=== PATIENT | female | born 1955 | race African-American/Black ===

== ENCOUNTER 2019-07-16 10:54 | Emergency (ER) | payer BC, OTHER ==
[~2019-07-16] VITALS: Ht 165.1 cm; Wt 79.0 kg
[2019-07-16] MEDS ORDERED: ONDANSETRON HCL 4MG/2ML INJ IV STA (11:40)
[2019-07-16] MEDS ORDERED: MORPHINE SULFATE 4 MG/ML CPJ (NOT FOR IM USE) IV STA (11:40)
[2019-07-16] MEDS ORDERED: NITROGLYCERIN OINT 1GM/INCH UDPKT TD ONE (11:45)
[2019-07-16 11:48] LABS: BASOPHILS % 1.1 % (0.0-2.0); EOSINOPHILS % 0.2 % (0.0-5.0); HEMATOCRIT. 44.4 % (36.0-48.0); HEMOGLOBIN. 15.3 g/dL (12.0-16.0); LYMPHOCYTES % 30.6 % (20.0-50.0); MEAN CORPUSCULAR HEMOGLOBIN 28.5 pg (28.0-32.0); MEAN CORPUSCULAR VOLUME 82.9 fL (81.0-99.0); MEAN PLATELET VOLUME 8.5 fl (7.4-10.4); NEUTROPHILS % 61.1 % (40.0-76.0); PLATELET 321 x1000/uL (130-400); RED BLOOD CELL COUNT 5.36 mill/uL (4.2-5.4); RED CELL DISTRIBUTION WIDTH 14.3 % (11.6-14.6)
[2019-07-16 11:55] LABS: CHLORIDE 103 mEq/L (98-107)
[2019-07-16] MEDS: METOPROLOL TARTRATE 5MG/5ML VIAL IV ONE ×2 (12:19→12:38)
[2019-07-16] MEDS ORDERED: POTASSIUM CHLORIDE 20MEQ TABLET SR PO ONE (12:30)
[2019-07-16 17:00] LABS: *AMPHETAMINES SCREEN URINE NEGATIVE (NEGATIVE); *BARBITURATES SCREEN URINE NEGATIVE (NEGATIVE); *BENZODIAZEPINES SCREEN URINE NEGATIVE (NEGATIVE); *COCAINE SCREEN URINE NEGATIVE (NEGATIVE)
[2019-07-16 17:01] LABS: CANNABINOID URINE SCREEN NEGATIVE (NEGATIVE); METHADONE URINE SCREEN NEGATIVE (NEGATIVE); OPIATES URINE SCREEN NEGATIVE (NEGATIVE); PHENCYCLIDINE URINE SCREEN NEGATIVE (NEGATIVE)
[2019-07-16 17:10] VITALS: BP 145/76
== END 2019-07-16 18:37 | disposition short-term general hospital (02) ==
LOC: ER 10:54 → CANBEDREQ 17:16 → ER 18:37
DX: R07.89 Other chest pain (principal); R00.0 Tachycardia, unspecified; I10 Essential (primary) hypertension; E11.9 Type 2 diabetes mellitus without complications
CPT/HCPCS: 36415; 71045; 80053; 80305; 83880; 84443; 84484; 85025; 93005; 99285; J2270; J2405

== ENCOUNTER 2019-09-15 10:27 | Inpatient (IN) | payer MEDICARE, MEDICAID, OTHER ==
[~2019-09-15] VITALS: Ht 157.5 cm; Wt 76.7 kg
[2019-09-15 11:51] LABS: BASOPHILS % 0.6 % (0.0-2.0); EOSINOPHILS % 0.2 % (0.0-5.0); HEMATOCRIT. 42.6 % (36.0-48.0); HEMOGLOBIN. 14.8 g/dL (12.0-16.0); LYMPHOCYTES % 26.3 % (20.0-50.0); MEAN CORPUSCULAR VOLUME 83.3 fL (81.0-99.0); MEAN PLATELET VOLUME 9.4 fl (7.4-10.4); MONOCYTES % 7.2 % (2.0-8.0); NEUTROPHILS % 65.7 % (40.0-76.0); PLATELET 301 x1000/uL (130-400); RED BLOOD CELL COUNT 5.11 mill/uL (4.2-5.4); RED CELL DISTRIBUTION WIDTH 14.4 % (11.6-14.6)
[2019-09-15 12:05] LABS: CHLORIDE 103 mEq/L (98-107)
[2019-09-15 12:11] LABS: PHOSPHORUS 1.7 mg/dL (2.5-4.9)
[2019-09-15] MEDS ORDERED: POTASSIUM CHLORIDE 20MEQ TABLET SR PO ONE (12:45)
[2019-09-15] MEDS ORDERED: POTASSIUM CHLORIDE INJ 40 MEQ in DEXT 5% WATER 250 ML IV ONE (12:45)
[2019-09-15 14:02] LABS: PROTHROMBIN TIME 10.8 sec (9.6-11.0)
[2019-09-15] MEDS ORDERED: DEXTROSE 50% WATER 50ML SYRINGE IV PRN (14:45)
[2019-09-15] MEDS ORDERED: ONDANSETRON HCL 4MG/2ML INJ IV PRN (14:45)
[2019-09-15 14:54] LABS: CLARITY URINE CLEAR (CLEAR); COLOR URINE YELLOW (YELLOW); KETONES URINE NEGATIVE (NEGATIVE); LEUKOCYTE ESTERASE URINE NEGATIVE (NEGATIVE); NITRITE URINE NEGATIVE (NEGATIVE); OCCULT BLOOD URINE NEGATIVE (NEGATIVE); PROTEIN URINE TRACE (NEGATIVE); SPECIFIC GRAVITY URINE 1.011 (1.005-1.030); UROBILINOGEN URINE 0.2 E.U./dL (0.2-1.0)
[2019-09-15] MEDS ORDERED: POTASSIUM PHOS,M-BASIC-D-BASIC 30 MMOL in SODIUM CHLORIDE 0.9% 500 ML IV NR (15:30)
[2019-09-15] MEDS ORDERED: POTASSIUM CHLORIDE 20MEQ TABLET SR PO NR (16:00)
[2019-09-15] MEDS: INSULIN LISPRO 100 UNITS/ML SUBCUT SCH (18:20)
[2019-09-15] MEDS: BLOOD SUGAR DIAGNOSTIC STRIP TEST SCH (18:41)
[2019-09-15 18:51] LABS: LDL CHOLESTEROL 96 mg/dL (5-100)
[2019-09-15 18:53] LABS: HDL CHOLESTEROL 46 mg/dL (40-59)
[2019-09-15] MEDS ORDERED: TRAZODONE HCL 50MG TABLET PO PRN (21:00)
[2019-09-16] VITALS (7 sets, daily range): BP systolic 101–135; BP diastolic 57–90
[2019-09-16] MEDS: INSULIN LISPRO 100 UNITS/ML SUBCUT SCH ×5 (00:35→20:49)
[2019-09-16] MEDS: BLOOD SUGAR DIAGNOSTIC STRIP TEST SCH ×5 (00:35→20:42)
[2019-09-16 02:19] LABS: CHLORIDE 110 mEq/L (98-107)
[2019-09-16 06:43] LABS: BASOPHILS % 0.9 % (0.0-2.0); EOSINOPHILS % 0.8 % (0.0-5.0); HEMATOCRIT. 39.2 % (36.0-48.0); HEMOGLOBIN. 13.7 g/dL (12.0-16.0); LYMPHOCYTES % 45.7 % (20.0-50.0); MEAN CORPUSCULAR HEMOGLOBIN 29.3 pg (28.0-32.0); MEAN CORPUSCULAR VOLUME 83.8 fL (81.0-99.0); MEAN PLATELET VOLUME 8.5 fl (7.4-10.4); MONOCYTES % 11.4 % (2.0-8.0); NEUTROPHILS % 41.2 % (40.0-76.0); PLATELET 277 x1000/uL (130-400); RED BLOOD CELL COUNT 4.67 mill/uL (4.2-5.4); RED CELL DISTRIBUTION WIDTH 14.6 % (11.6-14.6)
[2019-09-16 06:48] LABS: CHLORIDE 112 mEq/L (98-107)
[2019-09-16 06:54] LABS: PHOSPHORUS 3.3 mg/dL (2.5-4.9)
[2019-09-16] MEDS: POTASSIUM CHLORIDE 20MEQ TABLET SR PO SCH (09:00)
[2019-09-16] MEDS: HEPARIN 5000 UNITS/ML VIAL SUBCUT SCH ×2 (09:00→20:42)
[2019-09-16] MEDS: ACETAMINOPHEN 325MG TABLET PO PRN (16:05)
[2019-09-17] VITALS (12 sets, daily range): BP systolic 104–148; BP diastolic 62–94
[2019-09-17] MEDS: BLOOD SUGAR DIAGNOSTIC STRIP TEST SCH ×4 (06:06→20:41)
[2019-09-17 06:57] LABS: BASOPHILS % 1.2 % (0.0-2.0); EOSINOPHILS % 1.6 % (0.0-5.0); HEMATOCRIT. 39.2 % (36.0-48.0); HEMOGLOBIN. 13.6 g/dL (12.0-16.0); LYMPHOCYTES % 54.2 % (20.0-50.0); MEAN CORPUSCULAR HEMOGLOBIN 29.1 pg (28.0-32.0); MEAN CORPUSCULAR VOLUME 83.6 fL (81.0-99.0); MEAN PLATELET VOLUME 9.2 fl (7.4-10.4); MONOCYTES % 7.3 % (2.0-8.0); NEUTROPHILS % 35.7 % (40.0-76.0); PLATELET 279 x1000/uL (130-400); RED BLOOD CELL COUNT 4.69 mill/uL (4.2-5.4); RED CELL DISTRIBUTION WIDTH 14.4 % (11.6-14.6)
[2019-09-17] MEDS: INSULIN LISPRO 100 UNITS/ML SUBCUT SCH ×4 (07:16→20:47)
[2019-09-17 07:18] LABS: CHLORIDE 110 mEq/L (98-107)
[2019-09-17] MEDS ORDERED: ASPI-1158 PO (07:18)
[2019-09-17] MEDS ORDERED: AMLO5TAB4 MT (07:22)
[2019-09-17] MEDS ORDERED: HYDR12.54 MT (07:25)
[2019-09-17] MEDS ORDERED: METF100092 MT (07:25)
[2019-09-17] MEDS: GUAIFENESIN-DM 200MG-20MG/10ML UDC PO PRN ×3 (08:23→20:48)
[2019-09-17] MEDS: POTASSIUM CHLORIDE 20MEQ TABLET SR PO SCH (08:23)
[2019-09-17] MEDS: HEPARIN 5000 UNITS/ML VIAL SUBCUT SCH ×2 (08:24→21:56)
[2019-09-17] MEDS ORDERED: POTASSIUM CHLORIDE 20MEQ TABLET SR PO SCH (08:45)
[2019-09-17] MEDS ORDERED: HYDR25TA MT (09:24)
[2019-09-17] MEDS ORDERED: AMLO10TA80 MT (09:24)
[2019-09-17] MEDS ORDERED: METF-414 MT (09:24)
[2019-09-17] MEDS ORDERED: AMLODIPINE 2.5MG TABLET PO SCH (09:45)
[2019-09-17] MEDS ORDERED: DOCUSATE SODIUM 100MG CAPSULE PO PRN (09:45)
[2019-09-17] MEDS: ASPIRIN 81MG TABLET PO SCH (10:34)
[2019-09-17] MEDS: HYDROCHLOROTHIAZIDE 12.5MG CAPSULE PO SCH (10:34)
[2019-09-17] MEDS ORDERED: POTASSIUM CHLORIDE 20MEQ TABLET SR PO NR (13:45)
[2019-09-17] MEDS: CITALOPRAM HYDROBROMIDE 10MG TABLET PO SCH (15:57)
[2019-09-17] MEDS: PANTOPRAZOLE 40MG DR TABLET PO SCH (15:58)
[2019-09-17] MEDS: FLUTICASONE PROPIONATE 50MCG/SPRAY BOTTLE BOTHNSTRLS SCH (21:56)
[2019-09-18] VITALS (7 sets, daily range): BP systolic 143–165; BP diastolic 63–89
[2019-09-18] MEDS: BLOOD SUGAR DIAGNOSTIC STRIP TEST SCH ×4 (05:43→21:25)
[2019-09-18] MEDS: PANTOPRAZOLE 40MG DR TABLET PO SCH (05:46)
[2019-09-18] MEDS: INSULIN LISPRO 100 UNITS/ML SUBCUT SCH ×4 (05:57→21:00)
[2019-09-18 06:45] LABS: CHLORIDE 108 mEq/L (98-107)
[2019-09-18 06:54] LABS: BASOPHILS % 1.1 % (0.0-2.0); EOSINOPHILS % 0.4 % (0.0-5.0); HEMATOCRIT. 41.3 % (36.0-48.0); HEMOGLOBIN. 14.3 g/dL (12.0-16.0); LYMPHOCYTES % 41.8 % (20.0-50.0); MEAN CORPUSCULAR HEMOGLOBIN 28.9 pg (28.0-32.0); MEAN CORPUSCULAR VOLUME 83.7 fL (81.0-99.0); MEAN PLATELET VOLUME 9.6 fl (7.4-10.4); MONOCYTES % 6.8 % (2.0-8.0); NEUTROPHILS % 49.9 % (40.0-76.0); PLATELET 293 x1000/uL (130-400); RED BLOOD CELL COUNT 4.94 mill/uL (4.2-5.4); RED CELL DISTRIBUTION WIDTH 14.2 % (11.6-14.6)
[2019-09-18] MEDS ORDERED: POTASSIUM CHLORIDE 20MEQ TABLET SR PO SCH (09:00)
[2019-09-18] MEDS: CITALOPRAM HYDROBROMIDE 10MG TABLET PO SCH (09:29)
[2019-09-18] MEDS: ASPIRIN 81MG TABLET PO SCH (09:29)
[2019-09-18] MEDS: POTASSIUM CHLORIDE 20MEQ TABLET SR PO SCH (09:29)
[2019-09-18] MEDS: HEPARIN 5000 UNITS/ML VIAL SUBCUT SCH ×2 (09:30→20:55)
[2019-09-18] MEDS: HYDROCHLOROTHIAZIDE 12.5MG CAPSULE PO SCH (09:35)
[2019-09-18] MEDS: AMLODIPINE 5MG TABLET PO SCH ×2 (09:35→20:55)
[2019-09-18] MEDS: FLUTICASONE PROPIONATE 50MCG/SPRAY BOTTLE BOTHNSTRLS SCH (09:36)
[2019-09-18] MEDS ORDERED: POTASSIUM CHLORIDE 20MEQ TABLET SR PO NR (11:15)
[2019-09-18] MEDS ORDERED: THROAT LOZENGES-BENZOCAINE/MENTH/CETYLPYRD CL LOZENGES MM PRN (12:15)
[2019-09-18] MEDS: AZITHROMYCIN 500 MG TABLET PO SCH (13:02)
[2019-09-18] MEDS: GUAIFENESIN-DM 200MG-20MG/10ML UDC PO PRN ×3 (13:02→22:37)
[2019-09-19] VITALS (7 sets, daily range): BP systolic 120–157; BP diastolic 59–82
[2019-09-19] MEDS: BLOOD SUGAR DIAGNOSTIC STRIP TEST SCH ×4 (06:04→20:48)
[2019-09-19] MEDS: INSULIN LISPRO 100 UNITS/ML SUBCUT SCH ×4 (07:11→21:00)
[2019-09-19] MEDS: HEPARIN 5000 UNITS/ML VIAL SUBCUT SCH ×2 (08:40→20:48)
[2019-09-19] MEDS: PANTOPRAZOLE 40MG DR TABLET PO SCH (08:40)
[2019-09-19] MEDS: CITALOPRAM HYDROBROMIDE 10MG TABLET PO SCH (08:40)
[2019-09-19] MEDS: HYDROCHLOROTHIAZIDE 12.5MG CAPSULE PO SCH (08:41)
[2019-09-19] MEDS: AMLODIPINE 5MG TABLET PO SCH ×2 (08:41→20:48)
[2019-09-19] MEDS: AZITHROMYCIN 500 MG TABLET PO SCH (08:41)
[2019-09-19] MEDS: POTASSIUM CHLORIDE 20MEQ TABLET SR PO SCH (08:41)
[2019-09-19] MEDS: ASPIRIN 81MG TABLET PO SCH (08:42)
[2019-09-19] MEDS ORDERED: AZIT500T8 PO (10:30)
[2019-09-19] MEDS ORDERED: HYDR-4135 PO (10:30)
[2019-09-19] MEDS ORDERED: CITA10TA16 PO (10:30)
[2019-09-19] MEDS ORDERED: POTA20TA82 MT (10:30)
[2019-09-19] MEDS ORDERED: TUSSL PO (10:30)
[2019-09-19] MEDS ORDERED: TOPUD PO (10:30)
[2019-09-19] MEDS ORDERED: BENZ1LOZ60 MT (10:33)
[2019-09-19] MEDS: GUAIFENESIN-DM 200MG-20MG/10ML UDC PO PRN (11:41)
[2019-09-19] MEDS ORDERED: SENN-170 MT (12:10)
[2019-09-19] MEDS: HYDRALAZINE HCL 50MG TABLET PO SCH ×2 (13:09→22:00)
[2019-09-19] MEDS ORDERED: LORAZEPAM 0.5MG TABLET PO SCH (18:15)
[2019-09-19 18:24] LABS: EOSINOPHILS % 0.1 % (0.0-5.0); HEMATOCRIT. 44.5 % (36.0-48.0); HEMOGLOBIN. 15.2 g/dL (12.0-16.0); MEAN CORPUSCULAR HEMOGLOBIN 28.5 pg (28.0-32.0); MEAN CORPUSCULAR VOLUME 83.6 fL (81.0-99.0); MONOCYTES % 5.7 % (2.0-8.0); NEUTROPHILS % 58.2 % (40.0-76.0); PLATELET 361 x1000/uL (130-400); RED BLOOD CELL COUNT 5.32 mill/uL (4.2-5.4); RED CELL DISTRIBUTION WIDTH 14.1 % (11.6-14.6)
[2019-09-19 18:28] LABS: CHLORIDE 104 mEq/L (98-107)
[2019-09-20] VITALS: BP 129/65
[2019-09-20 04:00] VITALS: BP 142/84
[2019-09-20] MEDS: HYDRALAZINE HCL 50MG TABLET PO SCH (06:00)
[2019-09-20] MEDS: BLOOD SUGAR DIAGNOSTIC STRIP TEST SCH ×4 (06:57→20:52)
[2019-09-20] MEDS: INSULIN LISPRO 100 UNITS/ML SUBCUT SCH ×4 (07:31→20:59)
[2019-09-20 08:00] VITALS: BP 139/76
[2019-09-20 08:07] LABS: BASOPHILS % 0.6 % (0.0-2.0); EOSINOPHILS % 0.3 % (0.0-5.0); HEMATOCRIT. 41.7 % (36.0-48.0); HEMOGLOBIN. 14.3 g/dL (12.0-16.0); LYMPHOCYTES % 49.5 % (20.0-50.0); MEAN CORPUSCULAR HEMOGLOBIN 28.8 pg (28.0-32.0); MEAN CORPUSCULAR VOLUME 83.7 fL (81.0-99.0); MEAN PLATELET VOLUME 8.6 fl (7.4-10.4); MONOCYTES % 7.3 % (2.0-8.0); NEUTROPHILS % 42.3 % (40.0-76.0); PLATELET 340 x1000/uL (130-400); RED BLOOD CELL COUNT 4.98 mill/uL (4.2-5.4); RED CELL DISTRIBUTION WIDTH 14.6 % (11.6-14.6)
[2019-09-20 08:21] LABS: CHLORIDE 103 mEq/L (98-107)
[2019-09-20] MEDS: FAMOTIDINE 20MG TABLET PO SCH ×2 (10:24→20:59)
[2019-09-20] MEDS: ASPIRIN 81MG TABLET PO SCH (10:24)
[2019-09-20] MEDS: AZITHROMYCIN 500 MG TABLET PO SCH (10:24)
[2019-09-20] MEDS: POTASSIUM CHLORIDE 20MEQ TABLET SR PO SCH (10:24)
[2019-09-20] MEDS: CITALOPRAM HYDROBROMIDE 10MG TABLET PO SCH (10:25)
[2019-09-20] MEDS: HEPARIN 5000 UNITS/ML VIAL SUBCUT SCH ×2 (10:25→21:00)
[2019-09-20] MEDS: AMLODIPINE 5MG TABLET PO SCH ×2 (10:25→20:59)
[2019-09-20 12:00] VITALS: BP 125/65
[2019-09-20] MEDS: GUAIFENESIN-DM 200MG-20MG/10ML UDC PO PRN ×3 (12:22→23:26)
[2019-09-20] MEDS ORDERED: LOSA50TA3 PO (12:54)
[2019-09-20 16:00] VITALS: BP 134/64
[2019-09-20] MEDS: LOSARTAN POTASSIUM 50 MG TABLET PO SCH (16:02)
[2019-09-20 20:46] VITALS: BP 134/76
[2019-09-21] VITALS (7 sets, daily range): BP systolic 140–160; BP diastolic 61–93
[2019-09-21] MEDS: BLOOD SUGAR DIAGNOSTIC STRIP TEST SCH ×4 (05:59→20:39)
[2019-09-21] MEDS: INSULIN LISPRO 100 UNITS/ML SUBCUT SCH ×4 (06:00→20:39)
[2019-09-21 07:57] LABS: BASOPHILS % 0.6 % (0.0-2.0); EOSINOPHILS % 0.4 % (0.0-5.0); HEMATOCRIT. 41.5 % (36.0-48.0); HEMOGLOBIN. 14.5 g/dL (12.0-16.0); LYMPHOCYTES % 48.2 % (20.0-50.0); MEAN CORPUSCULAR VOLUME 83.2 fL (81.0-99.0); MEAN PLATELET VOLUME 8.7 fl (7.4-10.4); MONOCYTES % 7.6 % (2.0-8.0); NEUTROPHILS % 43.2 % (40.0-76.0); PLATELET 343 x1000/uL (130-400); RED BLOOD CELL COUNT 4.99 mill/uL (4.2-5.4); RED CELL DISTRIBUTION WIDTH 14.3 % (11.6-14.6)
[2019-09-21 08:11] LABS: CHLORIDE 107 mEq/L (98-107)
[2019-09-21] MEDS: POTASSIUM CHLORIDE 20MEQ TABLET SR PO SCH (09:49)
[2019-09-21] MEDS: FAMOTIDINE 20MG TABLET PO SCH ×2 (09:50→20:58)
[2019-09-21] MEDS: AMLODIPINE 5MG TABLET PO SCH ×2 (09:50→20:58)
[2019-09-21] MEDS: AZITHROMYCIN 500 MG TABLET PO SCH (09:50)
[2019-09-21] MEDS: ASPIRIN 81MG TABLET PO SCH (09:50)
[2019-09-21] MEDS: CITALOPRAM HYDROBROMIDE 10MG TABLET PO SCH (09:50)
[2019-09-21] MEDS: LOSARTAN POTASSIUM 50 MG TABLET PO SCH (09:50)
[2019-09-21] MEDS: HEPARIN 5000 UNITS/ML VIAL SUBCUT SCH ×2 (09:51→20:58)
[2019-09-21] MEDS: ACETAMINOPHEN 325MG TABLET PO PRN (09:53)
[2019-09-22] VITALS: BP 150/79
[2019-09-22 04:00] VITALS: BP 122/70
[2019-09-22] MEDS: BLOOD SUGAR DIAGNOSTIC STRIP TEST SCH ×3 (05:44→17:40)
[2019-09-22 08:00] VITALS: BP 149/83
[2019-09-22] MEDS: INSULIN LISPRO 100 UNITS/ML SUBCUT SCH ×3 (08:10→18:10)
[2019-09-22] MEDS: HEPARIN 5000 UNITS/ML VIAL SUBCUT SCH (09:00)
[2019-09-22] MEDS: AZITHROMYCIN 500 MG TABLET PO SCH (09:23)
[2019-09-22] MEDS: FAMOTIDINE 20MG TABLET PO SCH (09:23)
[2019-09-22] MEDS: AMLODIPINE 5MG TABLET PO SCH (09:23)
[2019-09-22] MEDS: LOSARTAN POTASSIUM 50 MG TABLET PO SCH (09:23)
[2019-09-22] MEDS: ASPIRIN 81MG TABLET PO SCH (09:23)
[2019-09-22] MEDS: CITALOPRAM HYDROBROMIDE 10MG TABLET PO SCH (09:23)
[2019-09-22] MEDS: POTASSIUM CHLORIDE 20MEQ TABLET SR PO SCH (09:24)
[2019-09-22 12:00] VITALS: BP 132/77
[2019-09-22] MEDS: GUAIFENESIN-DM 200MG-20MG/10ML UDC PO PRN (13:27)
[2019-09-22 14:46] LABS: BASOPHILS % 0.8 % (0.0-2.0); EOSINOPHILS % 0.6 % (0.0-5.0); HEMATOCRIT. 40.9 % (36.0-48.0); HEMOGLOBIN. 14.2 g/dL (12.0-16.0); LYMPHOCYTES % 38.4 % (20.0-50.0); MEAN CORPUSCULAR VOLUME 83.9 fL (81.0-99.0); MEAN PLATELET VOLUME 8.5 fl (7.4-10.4); MONOCYTES % 6.5 % (2.0-8.0); NEUTROPHILS % 53.7 % (40.0-76.0); PLATELET 312 x1000/uL (130-400); RED BLOOD CELL COUNT 4.88 mill/uL (4.2-5.4); RED CELL DISTRIBUTION WIDTH 14.7 % (11.6-14.6)
[2019-09-22 14:56] LABS: CHLORIDE 108 mEq/L (98-107)
[2019-09-22 16:00] VITALS: BP 108/83
== END 2019-09-22 19:45 | disposition home health service (06) | DRG 871 ==
LOC: ER 10:44 → EDBEDREQ 12:51 → MICUSO 14:20 → EDBEDREQTM 14:29 → EDBEDREQ 14:29 → 3WST 09-16 12:58 → 7WST 09-18 00:24
PROVIDERS: ADMIT Internal Medicine; ATTEND Internal Medicine
DX: A41.89 Other specified sepsis (principal); U07.1 COVID-19; J18.9 Pneumonia, unspecified organism; J96.00 Acute respiratory failure, unspecified whether with hypoxia or hypercapnia; J12.89 Other viral pneumonia; E87.6 Hypokalemia; E83.39 Other disorders of phosphorus metabolism; I10 Essential (primary) hypertension; E11.9 Type 2 diabetes mellitus without complications; J20.9 Acute bronchitis, unspecified; J20.8 Acute bronchitis due to other specified organisms; F41.9 Anxiety disorder, unspecified; E66.9 Obesity, unspecified; Z86.73 Personal history of transient ischemic attack (TIA), and cerebral infarction without residual deficits; Z78.9 Other specified health status; Z68.30 Body mass index [BMI] 30.0-30.9, adult
CPT/HCPCS: 36415; 71045; 80048; 80053; 80061; 81003; 82962; 83036; 83735; 83880; 84100; 84436; 84443; 84480; 84484; 85025; 93005; 93306; 96365; 97162; 97166; 99291; J1644; J1815; J3480; J3490; J7040; J7060; U0003-CS

== ENCOUNTER 2020-04-19 10:14 | Emergency (ER) | payer MEDICARE, OTHER ==
[~2020-04-19] VITALS: Ht 160 cm; Wt 73.0 kg
[~2020-04-19 10:14] MED LIST: AMLO10TA80 MT; ASPI-1406 PO; AZIT500T8 PO; BENZ1LOZ60 MT; CITA10TA16 PO; LOSA50TA3 PO; METF-414 MT; POTA20TA82 MT; SENN-257 MT; TOPUD PO; TUSSL PO
[2020-04-19] MEDS ORDERED: HYDROCODONE/ACETAMINOPHEN 5/325MG TABLET PO STA (10:39)
[2020-04-19 11:16] LABS: CHLORIDE 107 mEq/L (98-107)
[2020-04-19 11:17] LABS: BASOPHILS % 0.7 % (0.0-2.0); EOSINOPHILS % 0.6 % (0.0-5.0); HEMATOCRIT. 41.5 % (36.0-48.0); LYMPHOCYTES % 39.6 % (20.0-50.0); MEAN CORPUSCULAR HEMOGLOBIN 28.3 pg (28.0-32.0); MEAN CORPUSCULAR VOLUME 83.9 fL (81.0-99.0); MEAN PLATELET VOLUME 9.4 fl (7.4-10.4); MONOCYTES % 6.6 % (2.0-8.0); NEUTROPHILS % 52.5 % (40.0-76.0); PLATELET 259 x1000/uL (130-400); RED BLOOD CELL COUNT 4.95 mill/uL (4.2-5.4); RED CELL DISTRIBUTION WIDTH 14.3 % (11.6-14.6)
[2020-04-19 11:21] LABS: CLARITY URINE CLEAR (CLEAR); COLOR URINE YELLOW (YELLOW); KETONES URINE NEGATIVE (NEGATIVE); LEUKOCYTE ESTERASE URINE NEGATIVE (NEGATIVE); NITRITE URINE NEGATIVE (NEGATIVE); OCCULT BLOOD URINE NEGATIVE (NEGATIVE); PH URINE 7.5 (4.5-8.0); PROTEIN URINE 1+ (NEGATIVE); SPECIFIC GRAVITY URINE 1.012 (1.005-1.030); UROBILINOGEN URINE 0.2 E.U./dL (0.2-1.0)
[2020-04-19] MEDS ORDERED: MELO-105 MT (12:00)
[2020-04-19] MEDS ORDERED: KETOROLAC 60MG/2ML VIAL IM ONE (12:00)
[2020-04-19] MEDS ORDERED: [UNRECOGNIZED DRUG - CODE] MT (12:01)
[2020-04-19] MEDS ORDERED: SENN-257 MT (12:01)
[2020-04-19 12:25] VITALS: BP 152/63
== END 2020-04-19 12:26 | disposition home or self-care (01) ==
LOC: ER 10:14
DX: R10.32 Left lower quadrant pain (principal); E11.9 Type 2 diabetes mellitus without complications; I10 Essential (primary) hypertension; Z86.73 Personal history of transient ischemic attack (TIA), and cerebral infarction without residual deficits; Z79.84 Long term (current) use of oral hypoglycemic drugs; Z79.82 Long term (current) use of aspirin
CPT/HCPCS: 36415; 74176; 80053; 81003; 83690; 85025; 93005; 96372; 99285; J1885

== ENCOUNTER 2024-01-16 07:28 | Inpatient (IN) | payer MEDICARE, MEDICAID ==
[~2024-01-16] VITALS: Ht 165.1 cm; Wt 71.9 kg
[~2024-01-16 07:28] MED LIST changes: -BENZ1LOZ60 MT; +BENZ1LOZ73 MT; +LOSA-413 PO; -LOSA50TA3 PO; +MELO-105 MT; +POTA-205 MT; -POTA20TA82 MT; -SENN-257 MT; +SENN-362 MT; +[UNRECOGNIZED DRUG - CODE] MT
[2024-01-16 07:29] VITALS: O2SAT 100
[2024-01-16] MEDS ORDERED: ACETAMINOPHEN WITH CODEINE 300/30MG TABLET PO ONE (07:45)
[2024-01-16] MEDS: KETOROLAC 30MG/ML VIAL IM ONE (07:58)
[2024-01-16] MEDS: ACETAMINOPHEN WITH CODEINE 300/30MG TABLET PO NR (08:27)
[2024-01-16] MEDS ORDERED: MORPHINE SULFATE 4 MG/ML INJ (FOR IV/IM USE) IV ONE (09:00)
[2024-01-16] MEDS: MORPHINE SULFATE 4 MG/ML INJ (FOR IV/IM USE) IV NR (11:09)
[2024-01-16 11:10] LABS: BASOPHILS % 0.4 % (0.0-2.0); EOSINOPHILS % 1.4 % (0.0-5.0); HEMATOCRIT. 39.2 % (36.0-48.0); HEMOGLOBIN. 13.4 g/dL (12.0-16.0); LYMPHOCYTES % 42.6 % (20.0-50.0); MEAN CORPUSCULAR HEMOGLOBIN 29.9 pg (28.0-32.0); MEAN CORPUSCULAR HGB CONC 34.2 g/dL (31.0-37.0); MEAN CORPUSCULAR VOLUME 87.4 fL (81.0-99.0); MEAN PLATELET VOLUME 8.9 fl (7.4-10.4); MONOCYTES % 9.1 % (2.0-8.0); NEUTROPHILS % 46.5 % (40.0-76.0); PLATELET 277 x1000/uL (130-400); RED BLOOD CELL COUNT 4.48 mill/uL (4.2-5.4); WHITE BLOOD COUNT 6.4 x1000/uL (4.5-11.0)
[2024-01-16 11:22] LABS: CHLORIDE 108 mEq/L (98-107); POTASSIUM 3.3 mEq/L (3.5-5.1); SODIUM 139 mEq/L (136-145)
[2024-01-16 11:23] LABS: CALCIUM 9.6 mg/dL (8.7-10.4); CARBON DIOXIDE 26 mEq/L (21-32)
[2024-01-16 11:28] LABS: CREATININE 0.8 mg/dL (0.6-1.0); GLUCOSE 150 mg/dL (70-105); UREA NITROGEN BLOOD 17 mg/dL (9-23)
[2024-01-16] MEDS ORDERED: ONDANSETRON HCL 4MG/2ML INJ IV PRN (18:15)
[2024-01-16] MEDS ORDERED: DOCUSATE SODIUM 100MG CAPSULE PO PRN (18:15)
[2024-01-16] MEDS ORDERED: CLONIDINE 0.1MG TABLET PO PRN (18:15)
[2024-01-16] MEDS ORDERED: DEXTROSE 50% WATER 50ML SYRINGE IV PRN (18:15)
[2024-01-16] MEDS ORDERED: ACETAMINOPHEN 325MG TABLET PO PRN (18:15)
[2024-01-16] MEDS ORDERED: IPRATROPIUM/ALBUTEROL 0.5-3(2.5)MG/3ML NEB HHN PRN (19:00)
[2024-01-16 20:00] VITALS: BP 148/79; PULSE 68; RESP 18; TEMP 36.72516; O2SAT 95
[2024-01-16] MEDS: INSULIN LISPRO 100 UNITS/ML SUBCUT SCH (21:00)
[2024-01-16] MEDS: BLOOD SUGAR DIAGNOSTIC STRIP TEST SCH (21:34)
[2024-01-16] MEDS: HYDRALAZINE HCL 25MG TABLET PO SCH (22:00)
[2024-01-16] MEDS: GABAPENTIN 100MG CAPSULE PO SCH (22:05)
[2024-01-16] MEDS: ACETAMINOPHEN 325MG TABLET PO PRN (22:36)
[2024-01-16] MEDS ORDERED: NALOXONE HCL 0.4MG/ML VIAL IV PRN (22:45)
[2024-01-16 23:23] LABS: CREATINE KINASE 137 IU/L (34-145)
[2024-01-17] VITALS: BP 147/80; PULSE 70; RESP 18; TEMP 37.2252; O2SAT 95
[2024-01-17 04:00] VITALS: BP 146/67; PULSE 74; RESP 18; RESP 20; TEMP 36.83628; TEMP 36.89184; O2SAT 100; O2SAT 96
[2024-01-17 07:14] LABS: CHLORIDE 106 mEq/L (98-107); POTASSIUM 3.4 mEq/L (3.5-5.1); SODIUM 141 mEq/L (136-145)
[2024-01-17 07:15] LABS: CALCIUM 9.8 mg/dL (8.7-10.4); CARBON DIOXIDE 26 mEq/L (21-32)
[2024-01-17 07:20] LABS: CREATININE 0.8 mg/dL (0.6-1.0); GLUCOSE 130 mg/dL (70-105); TRIGLYCERIDE 126 mg/dL (0-150); UREA NITROGEN BLOOD 11 mg/dL (9-23)
[2024-01-17 07:21] LABS: ALANINE AMINOTRANSFERASE 73 IU/L (10-49); LDL CHOLESTEROL 155 mg/dL (5-100)
[2024-01-17 07:22] LABS: ALBUMIN 4.5 g/dL (3.2-4.8); ASPARTATE AMINOTRANSFERASE 73 IU/L (<34); BILIRUBIN DIRECT 0.1 mg/dL (<=3.0); CHOLESTEROL 225 mg/dL (<200); HDL CHOLESTEROL 52 mg/dL (>65); PHOSPHORUS 2.7 mg/dL (2.5-4.9)
[2024-01-17 07:23] LABS: BILIRUBIN TOTAL 0.7 mg/dL (0.1-1.0); INR 0.9; PROTHROMBIN TIME 10.3 sec (9.6-11.0)
[2024-01-17 07:40] LABS: BASOPHILS % 0.7 % (0.0-2.0); EOSINOPHILS % 2.9 % (0.0-5.0); HEMATOCRIT. 45.8 % (36.0-48.0); MEAN CORPUSCULAR HGB CONC 32.7 g/dL (31.0-37.0); MEAN CORPUSCULAR VOLUME 88.6 fL (81.0-99.0); MEAN PLATELET VOLUME 9.4 fl (7.4-10.4); MONOCYTES % 8.3 % (2.0-8.0); NEUTROPHILS % 34.1 % (40.0-76.0); PLATELET 245 x1000/uL (130-400); RED BLOOD CELL COUNT 5.17 mill/uL (4.2-5.4); RED CELL DISTRIBUTION WIDTH 14.3 % (11.6-14.6)
[2024-01-17 08:00] VITALS: BP 126/60; PULSE 102; RESP 20; TEMP 36.114; O2SAT 97
[2024-01-17] MEDS: TRAMADOL 50MG TABLET PO PRN (09:23)
[2024-01-17] MEDS: PANTOPRAZOLE SODIUM 40 MG/VIAL IV SCH (09:33)
[2024-01-17] MEDS: ENOXAPARIN 40MG/0.4ML SYR SUBCUT SCH (09:41)
[2024-01-17 12:00] VITALS: BP 135/70; PULSE 72; RESP 20; TEMP 36.22512; O2SAT 98
[2024-01-17] MEDS: POTASSIUM CHLORIDE 20MEQ TABLET SR PO NR (13:45)
[2024-01-17 16:00] VITALS: BP 137/50; PULSE 74; RESP 20; TEMP 36.22512; O2SAT 98
[2024-01-17 20:00] VITALS: BP 126/69; PULSE 78; RESP 20; TEMP 36.61404; O2SAT 98
[2024-01-17] MEDS: ATORVASTATIN CALCIUM 40MG TABLET PO SCH (21:59)
[2024-01-18] VITALS: BP 136/57; PULSE 75; RESP 18; TEMP 36.78072; O2SAT 100
[2024-01-18 04:00] VITALS: BP 115/55; PULSE 79; RESP 20; TEMP 36.72516; O2SAT 96
[2024-01-18 07:56] VITALS: BP 142/57; PULSE 72; RESP 20; TEMP 36.72516; O2SAT 100
[2024-01-18 08:34] LABS: BASOPHILS % 0.7 % (0.0-2.0); EOSINOPHILS % 3.6 % (0.0-5.0); HEMATOCRIT. 39.2 % (36.0-48.0); LYMPHOCYTES % 46.5 % (20.0-50.0); MEAN CORPUSCULAR HEMOGLOBIN 29.3 pg (28.0-32.0); MEAN CORPUSCULAR HGB CONC 33.2 g/dL (31.0-37.0); MEAN CORPUSCULAR VOLUME 88.2 fL (81.0-99.0); MEAN PLATELET VOLUME 9.4 fl (7.4-10.4); MONOCYTES % 11.9 % (2.0-8.0); NEUTROPHILS % 37.3 % (40.0-76.0); PLATELET 257 x1000/uL (130-400); RED BLOOD CELL COUNT 4.44 mill/uL (4.2-5.4); RED CELL DISTRIBUTION WIDTH 14.2 % (11.6-14.6); WHITE BLOOD COUNT 5.8 x1000/uL (4.5-11.0)
[2024-01-18 08:48] LABS: CHLORIDE 110 mEq/L (98-107); POTASSIUM 3.6 mEq/L (3.5-5.1); SODIUM 142 mEq/L (136-145)
[2024-01-18 08:49] LABS: CALCIUM 9.4 mg/dL (8.7-10.4); CARBON DIOXIDE 25 mEq/L (21-32)
[2024-01-18 08:54] LABS: CREATININE 0.8 mg/dL (0.6-1.0); GLUCOSE 129 mg/dL (70-105); UREA NITROGEN BLOOD 12 mg/dL (9-23)
[2024-01-18 12:23] VITALS: BP 140/72; PULSE 77; RESP 18; TEMP 36.6696; O2SAT 100
[2024-01-18 20:00] VITALS: BP 156/81; PULSE 72; RESP 19; TEMP 36.50292; O2SAT 98
[2024-01-19] VITALS: BP 142/63; PULSE 69; RESP 19; TEMP 36.3918; O2SAT 98
[2024-01-19 08:00] VITALS: BP 145/59; PULSE 84; RESP 18; TEMP 36.83628; O2SAT 98
[2024-01-19 12:00] VITALS: BP 136/67; PULSE 80; RESP 19; TEMP 37.00296; O2SAT 98
== END 2024-01-19 14:35 | disposition home or self-care (01) | DRG 552 ==
LOC: ER 07:28 → 5WST 10:37 → 6WST 20:34 → 6EST 01-18 15:28
PROVIDERS: ADMIT Internal Medicine; ATTEND Internal Medicine
DX: M48.00 Spinal stenosis, site unspecified (principal); E11.9 Type 2 diabetes mellitus without complications; E87.6 Hypokalemia; I10 Essential (primary) hypertension; Z86.73 Personal history of transient ischemic attack (TIA), and cerebral infarction without residual deficits; Z88.8 Allergy status to other drugs, medicaments and biological substances
CPT/HCPCS: 36415; 72141; 72148; 80048; 80061; 80076; 82550; 82962; 83036; 83735; 84100; 85025; 97162; 97535; 99285; J1650; J1815; J1885; J2270; J2470